=== PATIENT | male | born 1990 | race Caucasian/White ===

== ENCOUNTER 2021-03-26 10:54 | Emergency (ER) | payer SELFPAY ==
[2021-03-26] MEDS ORDERED: Sodium Chloride 0.9% 1,000 ML IV ONE (11:06)
[2021-03-26] MEDS ORDERED: HYDROmorphone 2 MG/ML Syringe IVPUSH ONE ×2 (11:06→12:14)
[2021-03-26] MEDS ORDERED: Ketorolac 30 MG/ML SDV IVPUSH ONE (11:06)
[2021-03-26] MEDS ORDERED: Ondansetron 4 MG/2 ML SDV IVPUSH ONE ×2 (11:10→12:25)
--- NOTE | 2021-03-26 11:19 | EDM.PDOC ---
ED HPI GENERAL MEDICAL PROBLEM - General Chief Complaint: Abdominal Pain Stated Complaint: abdominal pain Time Seen by Provider: 03/26/21 10:55 Source of Information: Reports: Patient History Limitations: Reports: No Limitations - History of Present Illness INITIAL COMMENTS - FREE TEXT/NARRATIVE: HISTORY AND PHYSICAL: History of present illness: Patient is a 30-year-old male who resents emergency room today with concern of right upper quadrant abdominal pain that started this morning at about 7 AM. 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 He states that it is constant in nature but also has waves of increasing pain. Patient states he had a similar episode approximately a month ago which resolved on its own so he was not evaluated for that. Patient states that he did eat a [employer] breakfast this morning right before getting to work. Patient denies any abdominal surgeries or any health history. Patient has some associated nausea but denies any vomiting. Patient denies fever, chills, chest pain, shortness of breath, or cough. Denies headache, neck stiff ness, change in vision, syncope, or near syncope. Denies vomiting, diarrhea, constipation, or dysuria. Has not noted any blood in urine or stool. Patient has been eating and drinking appropriately. Review of systems: As per history of present illness and below otherwise all systems reviewed and negative. Past medical history: As per history of present illness and as reviewed below otherwise noncontributory. Surgical history: As per history of present illness and as reviewed below otherwise noncontributory. Social history: See social history for further information Family history: As per history of present illness and as reviewed below otherwise noncontributory. Physical exam: General: Patient is alert, oriented, and in no acute distress. Patient laying on exam table, holding the right upper abdomen appearing uncomfortable. Vital stable and reviewed by me. HEENT: Atraumatic, normocephalic, pupils equal and reactive bilaterally, negative for conjunctival pallor or scleral icterus, mucous membranes moist, TMs normal bilaterally, throat clear, neck supple, nontender, trachea midline. No drooling or trismus noted. No meningeal signs. No hot potato voice noted. Lungs: Clear to auscultation, breath sounds equal bilaterally, chest nontender. Heart: S1S2, regular rate and rhythm without overt murmur Abdomen: Soft, nondistended, moderate right upper quadrant / periumbilical tenderness without guarding, negative Edmondson and negative rebound. Negative for masses or hepatosplenomegaly. Negative for costovertebral tenderness. Pelvis: Stable nontender. Genitourinary: Deferred. Rectal: Deferred. Skin: Intact, warm, dry. No lesions or rashes noted. Extremities: Atraumatic, negative for cords or calf pain. Neurovascular unremarkable. Neuro: Awake, alert, oriented. Cranial nerves II through XII unremarkable. Cerebellum unremarkable. Motor and sensory unremarkable throughout. Exam nonfocal. Notes: Patient is a 30-year-old otherwise healthy male who presents to the ED today with concern of right upper quadrant pain that is constant and colicky increases in pain since 7 this morning after eating a [employer] breakfast while at work. Upon arrival to the ED, patient is vitally stable but is holding his right upper abdomen appearing uncomfortable. Patient does have moderate right upper quadrant/periumbilical tenderness on exam without guarding and a negative Edmondson sign and rebound sign. Will obtain lab work as well as imaged right upper quadrant abdominal pelvic CT scan with contrast. CBC shows mild leukocytosis of 13.49, otherwise remainder of CBC unremarkable. CMP mild derangements unremarkable. Lipase within normal limits. Urinalysis clear of infection. The right upper quadrant ultrasound shows cholelithiasis without ultrasound evidence of acute cholecystitis or common duct obstruction. Hepatic steatosis. Normal-appearing right kidney. No regional ascites. Abdominal pelvic CT shows no acute findings in the abdomen or pelvis. Hepatosplenomegaly with diffuse hepatic steatosis. Shelby negative. Upon reevaluation of patient, he has great improvement of his pain and discomfort today in the emergency room. Strict return precautions thoroughly discussed with patient. Discussed importance for follow-up with a general surgery and primary care provider. Voices understanding and is agreeable to plan of care. Denies any further questions or concerns at this time. Diagnostics: CBC, CMP, UA, lipase, abdominal pelvic CT with contrast, right upper quadrant ultrasound Therapeutics: Saline, Toradol, Dilaudid, Zofran Prescription: None Impression: Symptomatic cholelithiasis Plan: 1. You can alternate ibuprofen and Tylenol as directed for pain and discomfort. 2. Avoid fatty foods as discussed. 3. Follow-up with a general surgeon and your primary care provider as discussed. Return to the ED as needed and as discussed. Definitive disposition and diagnosis as appropriate pending reevaluation and review of above. RUQ Pain Score (Numeric/FACES): 10 - Related Data Allergies Allergy/AdvReac Type Severity Reaction Status Date / Time No Known Allergies Allergy Verified 03/26/21 11:01 Home Meds: Home Meds . [No Known Home Meds] 03/26/21 [History] Past Medical History HEENT History: Reports: None Cardiovascular History: Reports: None Respiratory History: Reports: None Gastrointestinal History: Reports: None Genitourinary History: Reports: None Musculoskeletal History: Reports: None Neurological History: Reports: None Psychiatric History: Reports: None Endocrine/Metabolic History: Reports: None Hematologic History: Reports: None Immunologic History: Reports: None Oncologic (Cancer) History: Reports: None Dermatologic History: Reports: None - Infectious Disease History Infectious Disease History: Reports: None - Past Surgical History Head Surgeries/Procedures: Reports: None HEENT Surgical History: Reports: None Cardiovascular Surgical History: Reports: None Respiratory Surgical History: Reports: None GI Surgical History: Reports: None Male Surgical History: Reports: None Endocrine Surgical History: Reports: None Neurological Surgical History: Reports: None Musculoskeletal Surgical History: Reports: None Oncologic Surgical History: Reports: None Dermatological Surgical History: Reports: None Social & Family History - Family History Family Medical History: No Pertinent Family History - Tobacco Use Tobacco Use Status *Q: Never Tobacco User Second Hand Smoke Exposure: No - Caffeine Use Caffeine Use: Reports: None - Recreational Drug Use Recreational Drug Use: No ED ROS GENERAL - Review of Systems Review Of Systems: Comprehensive ROS is negative, except as noted in HPI. ED EXAM, GENERAL - Physical Exam Exam: See Below (see dictation) Course - Vital Signs Last Recorded V/S: Last Vital Signs Temp 96.0 F L 03/26/21 11:02 Pulse 68 03/26/21 11:02 Resp 18 03/26/21 11:02 BP 147/92 H 03/26/21 11:02 Pulse Ox 98 03/26/21 11:02 - Orders/Labs/Meds Labs: Laboratory Tests 03/26/21 03/26/21 03/26/21 Range/Units 11:03 11:03 11:03 WBC 13.49 H (4.0-11.0) K/uL RBC 5.47 (4.50-5.90) M/uL Hgb 16.8 (13.0-17.0) g/dL Hct 46.7 (38.0-50.0) % MCV 85.4 (80.0-98.0) fL MCH 30.7 (27.0-32.0) pg MCHC 36.0 (31.0-37.0) g/dL RDW Std Deviation 40.2 (28.0-62.0) fl RDW Coeff of Ana Maria 13 (11.0-15.0) % Plt Count 300 (150-400) K/uL MPV 10.90 (7.40-12.00) fL Neut % (Auto) 75.8 (48.0-80.0) % Lymph % (Auto) 19.5 (16.0-40.0) % Shelby % (Auto) 4.2 (0.0-15.0) % Eos % (Auto) 0.4 (0.0-7.0) % Baso % (Auto) 0.1 (0.0-1.5) % Neut # (Auto) 10.2 H (1.4-5.7) K/uL Lymph # (Auto) 2.6 H (0.6-2.4) K/uL Shelby # (Auto) 0.6 (0.0-0.8) K/uL Eos # (Auto) 0.1 (0.0-0.7) K/uL Baso # (Auto) 0.0 (0.0-0.1) K/uL Nucleated RBC % 0.0 /100WBC Nucleated RBCs # 0 K/uL Sodium 140 (136-148) mmol/L Potassium 4.3 (3.5-5.1) mmol/L Chloride 104 (98-107) mmol/L Carbon Dioxide 26.5 (21.0-32.0) mmol/L BUN 14 (7.0-18.0) mg/dL Creatinine 1.2 (0.8-1.3) mg/dL Est Cr Clr Drug Dosing 100.59 mL/min Estimated GFR (MDRD) > 60.0 ml/min Glucose 103 (74-106) mg/dL Calcium 9.5 (8.5-10.1) mg/dL Total Bilirubin 0.4 (0.2-1.0) mg/dL AST 19 (15-37) IU/L ALT 50 (14-63) IU/L Alkaline Phosphatase 76 (46-116) U/L Total Protein 8.0 (6.4-8.2) g/dL Albumin 4.2 (3.4-5.0) g/dL Globulin 3.8 (2.6-4.0) g/dL Albumin/Globulin Ratio 1.1 (0.9-1.6) Lipase 67 L (73-393) U/L Urine Color Urine Appearance Urine pH (5.0-8.0) Ur Specific Panther Burn (1.001-1.035) Urine Protein (NEGATIVE) mg/dL Urine Glucose (UA) (NEGATIVE) mg/dL Urine Ketones (NEGATIVE) mg/dL Urine Occult Blood (NEGATIVE) Urine Nitrite (NEGATIVE) Urine Bilirubin (NEGATIVE) Urine Urobilinogen (<2.0) EU/dL Ur Leukocyte Esterase (NEGATIVE) Monoscreen NEGATIVE (NEG) 03/26/21 Range/Units 14:28 WBC (4.0-11.0) K/uL RBC (4.50-5.90) M/uL Hgb (13.0-17.0) g/dL Hct (38.0-50.0) % MCV (80.0-98.0) fL MCH (27.0-32.0) pg MCHC (31.0-37.0) g/dL RDW Std Deviation (28.0-62.0) fl RDW Coeff of Ana Maria (11.0-15.0) % Plt Count (150-400) K/uL MPV (7.40-12.00) fL Neut % (Auto) (48.0-80.0) % Lymph % (Auto) (16.0-40.0) % Shelby % (Auto) (0.0-15.0) % Eos % (Auto) (0.0-7.0) % Baso % (Auto) (0.0-1.5) % Neut # (Auto) (1.4-5.7) K/uL Lymph # (Auto) (0.6-2.4) K/uL Shelby # (Auto) (0.0-0.8) K/uL Eos # (Auto) (0.0-0.7) K/uL Baso # (Auto) (0.0-0.1) K/uL Nucleated RBC % /100WBC Nucleated RBCs # K/uL Sodium (136-148) mmol/L Potassium (3.5-5.1) mmol/L Chloride (98-107) mmol/L Carbon Dioxide (21.0-32.0) mmol/L BUN (7.0-18.0) mg/dL Creatinine (0.8-1.3) mg/dL Est Cr Clr Drug Dosing mL/min Estimated GFR (MDRD) ml/min Glucose (74-106) mg/dL Calcium (8.5-10.1) mg/dL Total Bilirubin (0.2-1.0) mg/dL AST (15-37) IU/L ALT (14-63) IU/L Alkaline Phosphatase (46-116) U/L Total Protein (6.4-8.2) g/dL Albumin (3.4-5.0) g/dL Globulin (2.6-4.0) g/dL Albumin/Globulin Ratio (0.9-1.6) Lipase (73-393) U/L Urine Color YELLOW Urine Appearance CLEAR Urine pH 6.0 (5.0-8.0) Ur Specific Panther Burn 1.010 (1.001-1.035) Urine Protein NEGATIVE (NEGATIVE) mg/dL Urine Glucose (UA) NEGATIVE (NEGATIVE) mg/dL Urine Ketones NEGATIVE (NEGATIVE) mg/dL Urine Occult Blood NEGATIVE (NEGATIVE) Urine Nitrite NEGATIVE (NEGATIVE) Urine Bilirubin NEGATIVE (NEGATIVE) Urine Urobilinogen 0.2 (<2.0) EU/dL Ur Leukocyte Esterase NEGATIVE (NEGATIVE) Monoscreen (NEG) Meds: Medications Discontinued Medications Generic Name Dose Route Start Last Admin Trade Name Freq PRN Reason Stop Dose Admin Hydromorphone HCl 0.5 mg 03/26/21 11:06 03/26/21 11:17 Hydromorphone 2 Mg/Ml Syringe IVPUSH 03/26/21 11:07 0.5 mg ONETIME ONE Administration Hydromorphone HCl 0.5 mg 03/26/21 12:14 03/26/21 12:20 Hydromorphone 2 Mg/Ml Syringe IVPUSH 03/26/21 12:15 0.5 mg ONETIME ONE Administration Sodium Chloride 1,000 mls @ 999 mls/hr 03/26/21 11:06 03/26/21 11:14 Normal Saline IV 03/26/21 12:06 999 mls/hr BOLUS ONE Administration Iopamidol 100 ml 03/26/21 12:50 03/26/21 12:51 Iopamidol 755 Mg/Ml 500 Ml Multipack Bottle IVPUSH 03/26/21 12:51 100 ml ONETIME STA Administration Ketorolac Tromethamine 30 mg 03/26/21 11:06 03/26/21 11:15 Ketorolac 30 Mg/Ml Sdv IVPUSH 03/26/21 11:07 30 mg ONETIME ONE Administration Ondansetron HCl 4 mg 03/26/21 11:10 03/26/21 11:14 Ondansetron 4 Mg/2 Ml Sdv IVPUSH 03/26/21 11:11 4 mg ONETIME ONE Administration Ondansetron HCl Confirm 03/26/21 12:25 03/26/21 14:14 Ondansetron 4 Mg/2 Ml Sdv Administered 03/26/21 12:26 Not Given Dose 4 mg .ROUTE .STK-MED ONE Ondansetron HCl 4 mg 03/26/21 12:25 03/26/21 14:15 Ondansetron 4 Mg/2 Ml Sdv IVPUSH 03/26/21 12:26 4 mg ONETIME ONE Administration Departure - Departure Time of Disposition: 14:11 Disposition: Home, Self-Care 01 Clinical Impression: Biliary colic, Symptomatic cholelithiasis - Discharge Information Instructions: Cholelithiasis, [id number], Biliary Colic, Adult Referrals: PCP,None [Primary Care Provider] - Forms: ED Department Discharge Additional Instructions: The following information is given to patients seen in the emergency department who are being discharged to home. This information is to outline your options for follow-up care. We provide all patients seen in our emergency department with a follow-up referral. The need for follow-up, as well as the timing and circumstances, are variable depending upon the specifics of your emergency department visit. If you don't have a primary care physician on staff, we will provide you with a referral. We always advise you to contact your personal physician following an emergency department visit to inform them of the circumstance of the visit and for follow-up with them and/or the need for any referrals to a consulting specialist. The emergency department will also refer you to a specialist when appropriate. This referral assures that you have the opportunity for follow-up care with a specialist. All of these measure are taken in an effort to provide you with optimal care, which includes your follow-up. Under all circumstances we always encourage you to contact your private physician who remains a resource for coordinating your care. When calling for follow-up care, please make the office aware that this follow-up is from your recent emergency room visit. If for any reason you are refused follow-up, please contact the [facility] Emergency Department at and asked to speak to the emergency department charge nurse. [facility] [address] [place] [address] [address] [facility] - General Surgery Professional Building [address] [place] [address], [address] [place] [address] 1. You can alternate ibuprofen and Tylenol as directed for pain and discomfort. 2. Avoid fatty foods as discussed. 3. Follow-up with a general surgeon and your primary care provider as discussed. Return to the ED as needed and as discussed. Sepsis Event Note (ED) - Evaluation Sepsis Screening Result: No Definite Risk - Focused Exam Vital Signs: Vital Signs Temp Pulse Resp BP Pulse Ox 03/26/21 11:02 96.0 F L 68 18 147/92 H 98
[2021-03-26 11:39] LABS: BLOOD UREA NITROGEN,BUN 14 mg/dL (7.0-18.0); CARBON DIOXIDE,CO2 26.5 mmol/L (21.0-32.0); CHLORIDE,CL 104 mmol/L (98-107); GLUCOSE RANDOM 103 mg/dL (74-106); LIPASE 67 U/L (73-393); POTASSIUM,K 4.3 mmol/L (3.5-5.1); SODIUM,NA 140 mmol/L (136-148)
[2021-03-26] MEDS ORDERED: Ondansetron 4 MG/2 ML SDV ONE (12:25)
[2021-03-26] MEDS ORDERED: Iopamidol 755 MG/ML 500 ML Multipack Bottle IVPUSH STA (12:50)
--- NOTE | 2021-03-26 13:01 | US ---
Indication: Right upper quadrant pain Technique: Sonography of abdomen was performed limited to the structures discussed below. Comparison: There are no prior studies for comparison Findings: The liver is slightly enlarged measuring 19.4 centimeters in the midclavicular line. Echogenicity is abnormal. It is increased and heterogeneous with decreased sound through transmission. This pattern is usually due to fatty infiltration. There are numerous gallstones identified within the gallbladder. However, there is no wall thickening, pericholecystic fluid or definite sonographic Edmondson sign. The wall measures 1.1 millimeters which is normal. The pancreas is not well seen though the limited visualized portion of the pancreas appear normal. The common bile duct measures 3.4 millimeters which is normal. The right kidney is unremarkable in size and appearance measuring 11.4 centimeters. No calculus or hydronephrosis. No visible regional ascites. The portal vein is patent Impression: 1. Cholelithiasis without ultrasound evidence of acute cholecystitis or common duct obstruction. 2. Findings most compatible with hepatic steatosis. 3. Limited visualization of the pancreas. Normal appearing right kidney. No regional ascites. Dictated by Tarun Land MD @ 03/26/2021 12:58:[address] Tarun Land @ Mar 26 2021 12:58PM
--- NOTE | 2021-03-26 13:36 | CT ---
INDICATION: Right upper quadrant pain. TECHNIQUE: CT of the abdomen and pelvis with 100 cc Isovue 370 IV contrast. Coronal and sagittal reconstructions. COMPARISON: Abdominal ultrasound 03/26/2021. FINDINGS: The liver is enlarged measuring 22.7 cm in length. Diffuse hepatic steatosis. Hepatic and portal veins are patent. The spleen is enlarged measuring 15.0 cm in length. Splenule. The gallbladder, pancreas, and adrenal glands are negative. No biliary dilation. Symmetric enhancement of the kidneys. Tiny low-attenuation lesion in the right kidney most likely represents a cyst. No hydronephrosis or ureteral dilation. No urinary calculi identified. Small amount of excreted contrast within the posterior bladder. The bladder is otherwise normal in appearance. The prostate gland is unremarkable. No bowel dilation. Negative appendix. No intraperitoneal free air or fluid. Few mildly prominent giovanna hepatis lymph nodes are likely reactive. No lymphadenopathy by size criteria. Bilateral L5 pars interarticularis defects without spondylolisthesis. The lung bases are clear. IMPRESSION: 1. No acute findings in the abdomen or pelvis. 2. Hepatosplenomegaly with diffuse hepatic steatosis. Please note that all CT scans at this facility use dose modulation, iterative reconstruction, and/or weight-based dosing when appropriate to reduce radiation dose to as low as reasonably achievable. Dictated by Marisol Stevenson MD @ 03/26/2021 1:34:[address] Marisol Stevenson @ Mar 26 2021 1:34PM
== END 2021-03-26 15:06 | disposition home or self-care (01) ==
LOC: MW.ED 10:54
DX: K80.70 Calculus of gallbladder and bile duct without cholecystitis without obstruction (principal)
CPT/HCPCS: 36415; 74177; 76705; 80053; 81003; 83690; 85025; 86308; 96374; 96375; 96376; 99284; J1170; J1885; J2405; J7030; Q9967